=== PATIENT | female | born 1975 | race Caucasian/White ===

== ENCOUNTER 2025-01-07 20:56 | Emergency (ER) | payer BC, SELFPAY ==
[2025-01-07 21:11] LABS: Hematocrit 41.4 % (37.0-47.0); Hemoglobin 14.2 g/dL (12.0-16.0); Mean Corp Hgb Conc. 34.3 g/dL (33.0-37.0); Mean Corpuscular Volume 90.2 fL (81.0-99.0); Nucleated Red Blood Cells % 0 %; Platelet Count 281 10^3/uL (130-400); Red Cell Dist. Width 12.6 % (11.5-14.5)
[2025-01-07 21:23] LABS: HCG, Serum Qualitative Screen Negative
[2025-01-07 21:31] LABS: ALT (SGPT) 16 U/L (0-35); AST (SGOT) 17 U/L (14-36); Albumin 4.2 g/dl (3.5-5.0); Alkaline Phosphatase 39 U/L (38-126); Blood Urea Nitrogen 16 mg/dl (7-17); Calcium 9.1 mg/dl (8.4-10.2); Carbon Dioxide 28 mmol/L (22-30); Chloride 99 mmol/L (98-107); Glucose 104 mg/dl (70-99); Lipase 84 U/L (23-300); Potassium 4.1 mmol/L (3.5-5.1); Sodium 133 mmol/L (135-145); Total Protein 6.9 g/dl (6.3-8.2); eGFR > 60.00
[2025-01-07] MEDS: PROTONIX IV 40 MG IV (21:53)
[2025-01-07] MEDS: NSS 1000 IV (21:53)
[2025-01-07 22:38] LABS: Magnesium 1.9 mg/dl (1.6-2.3)
[2025-01-07] MEDS: ZOFRAN 4 MG IV (22:50)
[2025-01-07] MEDS: NSS 500 IV (22:59)
--- NOTE | 2025-01-07 23:02 | ED.GENMED ---
History of Present Illness
General
Chief Complaint: Abdominal Symptoms
Source: patient
Exam Limitations: none
Time Seen by Provider: 01/07/25 21:32
Nursing documentation reviewed up to this point in time: agreed with
History of Present Illness
History of Present Illness:
Patient presents ED secondary to persistent nausea, vomiting, and nonbloody diarrhea over the past 3 days. Patient states that she had similar symptoms 1 month ago, which resolved after 5 days. Denies fever or chills. Denies abdominal pain.
Denies recent change in diet. Since October 2024, patient has been taking Zepbound for weight loss. Denies recent travel. When she experienced similar symptoms 1 month ago, her daughter had similar symptoms.
Past History
Past History
ED Past Medical History: None
ED Past Surgical History: None
Social History
Tobacco: Non-smoker
Review of Systems
Review of Systems
Allergies reviewed?: Yes
All Other Systems: ROS reviewed and negative except as documented in HPI and ROS
Constitutional: Reports no symptoms; Denies fever or chills
Respiratory: Reports no symptoms
Cardiac: Reports no symptoms
ABD/GI: Reports nausea, vomiting and diarrhea; Denies abdominal pain
Musculoskeletal: Reports no symptoms
Skin: Reports no symptoms
Neurological: Reports no symptoms
Phy Exam
Physical Exam
Physical Exam:
Physical Exam
General: mild distress, not acutely ill. afebrile
Head: nc/at. eomi
Neck: supple. no meningeal signs.
Heart: s1/s2 regular rate and rhythm
Lungs: no acute respiratory distress. clear bilaterally
Abdomen: normal bowel sounds. not tender. no distention
Neuro: alert and oriented x 3. no focal neurological deficits
Skin: no rash
Psychiatric: well kept. interactive and cooperative
Extremities: no edema. no calf tenderness.
Course
Orders/Labs/Results
Orders:
Orders
01/07/25 21:02
Test Result ONCE
01/07/25 21:04
Complete Blood Count/With Diff Urgent
Comprehensive Metabolic Panel Urgent
HCG, Serum Qualitative Screen Urgent
Lipase Urgent
Magnesium Urgent
Comment: ADD ON
01/07/25 21:39
Add On- LAB Urgent
Tests Added?: magnesium
0.9% Sodium Chloride 1000 ml [Nss] 1,000 ml IV BOLUS
Pantoprazole [Protonix IV] 40 mg IV NOW STA
01/07/25 22:47
Ondansetron Injectable [Zofran] 4 mg IV NOW STA
01/07/25 22:48
Ondansetron Injectable [Zofran] 4 mg .ROUTE .[facility]
01/07/25 22:50
Stool Culture Urgent
MARTÍN Source: Feces/Stool
Specimen Description:
Date Specimen was Collected: 01/07/25
Time Specimen was Collected: 22:49
01/07/25 22:56
0.9% Sodium Chloride 500 ml [Nss] 500 ml IV BOLUS
Abnormal Lab Results
01/07/25
21:04
Absolute Monos (auto) 0.7 H 10^3/uL
(0.1-0.6)
Monocytes % 10.6 H %
(1.7-9.3)
Sodium 133 L mmol/L
(135-145)
Glucose 104 H mg/dl
(70-99)
01/07/25 21:04
01/07/25 21:04
Vital Signs
Initial and Last Documented VS:
Initial Vital Signs
Temp Pulse Resp BP Pulse Ox
98.3 F 75 20 118/84 99
01/08/25 00:00 01/08/25 00:00 01/08/25 00:00 01/08/25 00:00 01/08/25 00:00
Last Documented Vital Signs
Temp Pulse Resp BP Pulse Ox
98.3 F 75 20 118/84 99
01/08/25 00:00 01/08/25 00:00 01/08/25 00:00 01/08/25 00:00 01/08/25 00:00
MDM/Problems Addressed
MDM/Problems Addressed:
Patient reports improvement in symptoms after treatment in ED. Patient also remains afebrile, hemodynamically stable, and nontoxic-appearing. Differential diagnosis including recurrent viral illness versus side effect from Zepbound discussed with
patient. Patient will follow-up with her primary care physician for reevaluation.
*Pulse Oximetry
Patient hypoxic: no
*Critical Care Note
Total Time (30-74mins, 75-104mins- exclusive of procedures): Not Applicable
ED Attending Note
-
Portions of this chart may have been created with voice recognition software.� Occasional wrong word or��sound alike� substitutions may have occurred due to the inherent limitations of voice recognition software.
Discharge Plan
Departure
Patient Disposition: Home (Routine Discharge)
Date of Disposition: 01/08/25
Time of Disposition: 00:26
Patient with high blood pressure during this ER visit?: No
Condition: Fair
Discharge Problem:
Nausea, vomiting and diarrhea
Instructions: Nausea and Vomiting, Adult (DC), Acute Diarrhea
Prescriptions:
New
ondansetron 4 mg Tablet,Disintegrating
4 mg PO TIDPRN PRN (Reason: nausea/vomiting) Qty: 12 0RF
Referrals:
Clyde Correa MD [Family Provider, Family Practice]
Activity Restrictions/Additional Instructions:
As discussed, please follow-up with your primary care physician for reevaluation. Your prescriptions been sent electronically to [facility] pharmacy in [place].
Interventions
Interventions:
*Risk Screen - Suicide Last Done: 01/07/25 21:01
*General Assessment Last Done: 01/07/25 21:01
*Neglect/Abuse Screening Last Done: 01/07/25 21:01
*ED COVID-19 Vaccine History Last Done: 01/07/25 21:01
*ED Influenza Vaccine History Last Done: 01/07/25 21:01
*Nursing Disposition Last Done: 01/08/25 00:36
[facility] Assessment Last Done: 01/07/25 21:30
Discharge Date and Time
Discharge Date/Time: 01/08/25 00:37
Print Language: PASHTO
[2025-01-08] VITALS: BP 118/84
== END 2025-01-08 00:37 | disposition home or self-care (01) ==
LOC: EMR 20:56
PROVIDERS: Emergency Medicine; EMERGENCY PHYSICIAN Emergency Medicine; FAMILY PHYSICIAN Family Medicine
DX: R11.2 Nausea with vomiting, unspecified (principal); R19.7 Diarrhea, unspecified
CPT/HCPCS: 99283; 96374; 96375; 96361; 80053; 83690; 83735; 84703; 85025; 87045; 87046; 87427